=== PATIENT | male | born 1985 | race Caucasian/White ===

== ENCOUNTER 2018-03-22 16:18 | Emergency (ER) | payer OTHER ==
[2018-03-22 16:54] LABS: BASOPHILS # (AUTO) 0.1 10^3/uL (0.0-0.1); BASOPHILS % (AUTO) 1.7 %; EOSINOPHILS % (AUTO) 0.5 %; HGB - HEMOGLOBIN 15.7 g/dL (14.0-18.0); LYMPHOCYTES # (AUTO) 1.7 10^3/uL (1.5-3.5); LYMPHOCYTES % (AUTO) 24.2 %; MEAN CORPUSCULAR HEMOGLOBIN 28.4 pg (27.0-31.0); MEAN CORPUSCULAR VOLUME 83.7 fL (80.0-94.0); MEAN PLATELET VOLUME 7.8 fL (7.4-11.4); MONOCYTES # (AUTO) 0.4 10^3/uL (0.0-1.0); NEUTROPHILS # (AUTO) 4.7 10^3/uL (1.5-6.6); NEUTROPHILS % (AUTO) 67.6 %; PLT - PLATELET COUNT 327 10^3/uL (130-450); RED BLOOD COUNT 5.53 10^6/uL (4.70-6.10); RED CELL DISTRIBUTION WIDTH 13.3 % (12.0-15.0); WHITE BLOOD COUNT 6.9 x10^3/uL (4.8-10.8)
[2018-03-22 17:06] LABS: ALBUMIN 4.8 g/dL (3.2-5.5); ALBUMIN/GLOBULIN RATIO 1.3 (1.0-2.2); BILIRUBIN,TOTAL 0.6 mg/dL (0.2-1.0); CALCIUM 9.6 mg/dL (8.5-10.3); CREATININE 1.3 mg/dL (0.6-1.2); TOTAL PROTEIN 8.5 g/dL (6.7-8.2)
--- NOTE | 2018-03-22 17:51 | ED Physician Documentation ---
History of Present Illness - Stated complaint Stated Complaint: SOA/DIZZY/NAUSEA - Chief complaint Chief Complaint: General - History obtained from History obtained from: Patient - History of Present Illness Timing: Today (Very brief episode of chest pain at noon today. It was after drinking coffee. It was in the pit of his stomach and felt like a burning pressure. It lasted about 3 minutes and was not associated with any other symptoms at the time. Later in the day he has had 2 lightheaded episodes while standing. There is no associated shortness of breath or chest pain with those. He feels normal now. No recent travel. No pedal edema or calf pain. No cough. No hemoptysis.) Review of Systems Constitutional: denies: Fever, Chills Respiratory: denies: Dyspnea, Cough GI: denies: Abdominal Pain, Nausea, Vomiting PD PAST MEDICAL HISTORY - Past Medical History Past Medical History: No - Past Surgical History Past Surgical History: Yes General: Other - Present Medications Home Medications: Ambulatory Orders Medication Instructions Recorded Confirmed No Known Home Medications 03/22/18 03/22/18 - Allergies Allergies/Adverse Reactions: Allergies Allergy/AdvReac Type Severity Reaction Status Date / Time No Known Drug Allergies Allergy Verified 03/22/18 16:39 - Social History Does the pt smoke?: No Smoking Status: Never smoker Does the pt drink ETOH?: No Does the pt have substance abuse?: No - Immunizations Immunizations are current?: Yes PD ED PE NORMAL - Vitals Vital signs reviewed: Yes - General General: Alert and oriented X 3, No acute distress - HEENT HEENT: PERRL, EOMI - Neck Neck: Supple, no meningeal sign, No bony TTP - Cardiac Cardiac: RRR, No murmur - Respiratory Respiratory: No respiratory distress, Clear bilaterally - Abdomen Abdomen: Non tender - Extremities Extremities: No edema, No calf tenderness / cord - Neuro Neuro: Alert and oriented X 3, Normal speech Results - Vitals Vitals: Vital Signs - 24 hr 03/22/18 03/22/18 16:25 16:39 Temperature 36 C L Heart Rate 83 78 Respiratory 18 18 Rate Blood Pressure 160/94 H 144/91 H O2 Saturation 100 98 Oxygen O2 Source Room air - EKG (time done) 1636 Rate: Rate (enter#) (83) Rhythm: NSR [place]: Normal Intervals: Normal CA QRS: Normal Ischemia: Normal ST segments Computer interpretation: Agree with computer - Labs Labs: Laboratory Tests 03/22/18 03/22/18 03/22/18 16:49 16:49 16:49 WBC 6.9 RBC 5.53 Hgb 15.7 Hct 46.3 MCV 83.7 MCH 28.4 MCHC 34.0 RDW 13.3 Plt Count 327 MPV 7.8 Neut # (Auto) 4.7 Lymph # (Auto) 1.7 [place] # (Auto) 0.4 Eos # (Auto) 0.0 Baso # (Auto) 0.1 Absolute Nucleated RBC 0.01 Nucleated RBC % 0.1 Sodium 137 Potassium 3.9 Chloride 99 L Carbon Dioxide 27 Anion Gap 11.0 BUN 15 Creatinine 1.3 H Estimated GFR (MDRD) 64 L Glucose 89 Calcium 9.6 Total Bilirubin 0.6 AST 29 ALT 31 Alkaline Phosphatase 72 Troponin I < 0.04 Total Protein 8.5 H Albumin 4.8 Globulin 3.7 Albumin/Globulin Ratio 1.3 Lipase 32 PD MEDICAL DECISION MAKING - ED course ED course: This is a 33-year-old gentleman with 2 lightheaded episodes that were following a brief atypical chest/epigastric episode of pain today. His examination well, labs, and EKG were unremarkable except for the creatinine of 1.3. He only has one kidney. He was advised to recheck this and avoid NSAIDs. Departure - Departure Disposition: 01 Home, Self Care Clinical Impression: Atypical chest pain, Dizziness Condition: Good Record reviewed to determine appropriate education?: Yes Instructions: ED Chest Pain NonCardiac Comments: Return for new or worsening symptoms. Follow-up with your doctor, recheck creatinine of 1.3 would suggest very mildly decreased kidney function. Avoid nonsteroidal anti-inflammatory drugs such as ibuprofen, Motrin, Aleve.
[2018-03-22 18:19] VITALS: BP 141/91
== END 2018-03-22 18:21 | disposition home or self-care (01) ==
LOC: ED 16:18
DX: R07.89 Other chest pain (principal); R42 Dizziness and giddiness; R94.4 Abnormal results of kidney function studies; Q60.0 Renal agenesis, unilateral
CPT/HCPCS: 36415; 80053; 83690; 84484; 85025; 93005; 99283